=== PATIENT | female | born 1980 | race Caucasian/White ===

== ENCOUNTER 2020-05-28 10:57 | Day surgery (SDC) | payer OTHER ==
[~2020-05-28] VITALS: Ht 172.7 cm; Wt 74.9 kg
[2020-05-28 11:36] VITALS: BP 112/75
[2020-05-28] MEDS ORDERED: denies (11:38)
[2020-05-28] MEDS ORDERED: SODIUM CHLORIDE 0.9% 500 ML IV SCH (12:00)
[2020-05-28] MEDS ORDERED: LIDOCAINE-MPF 1%, 5ML ONE (13:03)
[2020-05-28 14:10] LABS: GLUCOSE, CSF 37 mg/dL (40-80); TOTAL PROTEIN,CSF 41 mg/dL (15-45)
== END 2020-05-28 16:35 | disposition home or self-care (01) ==
LOC: OUT 10:57
PROVIDERS: ATTEND Psychiatry & Neurology Neurology
DX: G35 Multiple sclerosis (principal); Z79.899 Other long term (current) drug therapy
CPT/HCPCS: 36415; 62328; 82040; 82042; 82164; 82784; 82945; 82947; 83520; 83873; 84157; 86235; 86617; 86645; 86695; 86696; 86762; 86777; 86778; 87015; 87070; 87075; 87102; 87116; 87205; 87206; 89051; J7040

== ENCOUNTER → 2020-07-10 | Outpatient (CLI) | payer OTHER ==
[~2020-07-10] MED LIST: denies
== END | disposition home or self-care (01) ==
LOC: CFH 10:42
PROVIDERS: ATTEND Obstetrics & Gynecology Gynecology
DX: Z12.31 Encounter for screening mammogram for malignant neoplasm of breast (principal)
CPT/HCPCS: 77063; 77067